=== PATIENT | male | born 1955 | race Caucasian/White ===

== ENCOUNTER 2018-06-27 16:51 | Inpatient (IN) | payer MEDICARE ==
[~2018-06-27] VITALS: Ht 182.9 cm; Wt 85.3 kg
[~2018-06-27 16:51] MED LIST: HYDR-548 PO
[2018-06-27] MEDS ORDERED: MAG HYDROX/AL HYDROX/SIMETH 30 ML UDC PO PRN (17:30)
[2018-06-27] MEDS ORDERED: MAGNESIUM HYDROXIDE 30 ML UDC PO PRN (17:30)
[2018-06-27] MEDS: LORAZEPAM 0.5 MG TABLET PO PRN (18:25)
--- NOTE | 2018-06-27 18:26 | NUR ---
RN-CO: Ativan 1 mg po given for c/o of anxiety.
[2018-06-27 19:30] VITALS: BP 136/87
--- NOTE | 2018-06-27 19:30 | NUR ---
GPS ADMISSION NOTE, RECEIVED PATIENT FROM E.. / [facility]. PATIENT ARRIVED ON THIS UNIT AT 1930 VIA STRETCHER WITH 2 EMT ESCORTS. PATIENT ADMITTED ON A 5150 HOLD FOR GD. PER HOLD PATIENT CALLED 911 COMPLAINING OF FOOT PAIN FOR 37 YEARS. THEN THE PATIENT SCREAMED HE IS BIPOLAR AND GOING TO KILL HIMSELF. PATIENT HAS HAS 4 HOSPITALIZATIONS IN THE LAST MONTH FOR HIS MENTAL DISORDER. PATIENT HAS MONEY BUT BECAUSE OF HIS MANIC BEHAVIOR HE CANNOT ACCESS IT. PATIENT CAN NOT GIVE VIABLE PLAN FOR SELF CARE AT THIS TIME. THE 5150 WAS REVIEWED AND THE DOCUMENTATION IN THE 5150 HOLD APPEARS TO REFLECT THE PRESENTATION OF THE PATIENT. UPON FACE TO FACE ASSESSMENT PATIENT IS CURRENTLY LYING IN BED AWAKE, HAS A COMPLAINT OF LOW BACK PAIN AT A 7 OUT 10 ON THE PAIN SCALE. PATIENT IS TAKING ORAL PAIN MEDICATION FOR THIS PAIN. PATIENT IS DISPLAYING NO S/S OF APPARENT DISTRESS. PATIENT BREATHING IS UNLABORED WITH EQUAL RISE AND FALL OF THE CHEST. PATIENT IS ALERT AND ORIENTATED X 3 ON ROOM AIR. PATIENT ASSISTED WITH TURING AND REPOSITIONING Q2HR AND PRN FOR COMFORT AND CIRCULATION. PATIENT HAS NO NEEDS AT THIS TIME. PATIENT IS NOTED TO BEING HYPERVERBAL, DISHEVELED, DISORGANIZED, ANXIOUS, COOPERATIVE, AND NEEDS REDIRECTION. PATIENT DENIES SUICIDE IDEATIONS AND HOMICIDAL IDEATIONS AT THIS TIME. PATIENT IS UNDER THE PSYCHIATRIC CARE OF DR. BYNUM AND THE MEDICAL CARE OF DR ISLAS. PATIENT BELONGINGS WERE INVENTORIED AND CHECKED FOR CONTRABAND. ALL CONTRABAND REMOVED AND STORED IN PATIENT HALLWAY LOCKER. PATIENT ADVANCED DIRECTIVES PREFERENCE, IMMUNIZATIONS QUESTIONER, NECESSARY PAPERWORK, AND SKIN ASSESSMENT COMPLETED. PATIENT ORIENTATED TO ROOM, FLOOR, AND STAFF WITH ALL QUESTIONS ANSWERED. PATIENT EDUCATED ON THE USE OF THE CALL MARK. PATIENT BED SIDE RAILS ARE UP X 2 FOR SAFETY. PATIENT BED IS LOCKED, LOW AND I WILL CONTINUE TO MONITOR THIS PATIENT Q 15 MIN WITH THE HELP OF STAFF TO MAINTAIN SAFETY.
[2018-06-27] MEDS ORDERED: LEVO88TA5 PO (20:02)
[2018-06-27] MEDS ORDERED: PREG75CA PO (20:02)
[2018-06-27] MEDS ORDERED: QUET200T PO (20:02)
[2018-06-27] MEDS ORDERED: CLON1TAB PO (20:03)
[2018-06-27] MEDS ORDERED: TRAZ-214 PO (20:04)
[2018-06-27] MEDS ORDERED: LITH150C PO (20:06)
[2018-06-27 20:11] VITALS: BP 147/84
[2018-06-27] MEDS ORDERED: HYDROCODONE/APAP 10/325MG 1 EA TABLET PO ONE (21:30)
--- NOTE | 2018-06-27 21:30 | NUR ---
GPS RN NOTE, PATIENT HAS A COMPLAINT OF LOWER BACK PAIN AT 8 OUT 10 ON THE PAIN SCALE AND IS REQUESTING NORCO AT THIS TIME. PAGED [facility] AND INFORMED DR GAL MARCIAL OF MY FINDING. DR GAL MARCIAL ORDERED NORCO 10-325 1 TAB PO ONCE AND SAID HE WILL THE MEDICATION RECONCILIATION. ALL ORDERS NOTED AND CARRIED OUT, WILL CONTINUE TO MONITOR THIS PATIENT.
--- NOTE | 2018-06-27 21:46 | NUR ---
GPS RN NOTE, PATIENT HAS A COMPLAINT OF LOWER BACK PAIN AT 8 OUT 10 ON THE PAIN SCALE AND IS REQUESTING NORCO AT THIS TIME. PATIENT VITAL SIGNS ARE STABLE GAVE NORCO 10-325 1 TAB PO ONCE. WILL REASSESS PAIN AND I WILL CONTINUE TO MONITOR THIS PATIENT.
[2018-06-27] MEDS: TEMAZEPAM 7.5 MG CAPSULE PO PRN (22:59)
--- NOTE | 2018-06-27 22:59 | NUR ---
GPS RN NOTE, PATIENT HAS A COMPLAINT OF NOT BEING ABLE TO SLEEP AND IS REQUESTING RESTORIL AT THIS TIME. PATIENT VITAL SIGNS ARE STABLE. GAVE RESTORIL 15MG PO HS ORDERED. WILL REASSESS PAIN AND I WILL CONTINUE TO MONITOR THIS PATIENT.
[2018-06-27] MEDS ORDERED: HYDROCODONE/APAP 10/325MG 1 EA TABLET PO PRN (23:00)
[2018-06-28] MEDS: LORAZEPAM 0.5 MG TABLET PO PRN ×4 (03:12→20:09)
--- NOTE | 2018-06-28 03:13 | NUR ---
GPS RN NOTE, PATIENT HAS A COMPLAINT OF FEELING ANXIOUS AND IS REQUESTING ATIVAN AT THIS TIME. PATIENT VITAL SIGNS ARE STABLE. GAVE ATIVAN 1 MG PO Q4 HR PRN ORDERED. WILL REASSESS FOR ANXIETY AND I WILL CONTINUE TO MONITOR THIS PATIENT.
[2018-06-28] MEDS: HYDROCODONE/APAP 10/325MG 1 EA TABLET PO PRN ×3 (04:17→17:45)
[2018-06-28 08:00] VITALS: BP 150/98
[2018-06-28 08:09] LABS: ALBUMIN 3.6 g/dL (3.4-5.0); BASOPHILS # (AUTO) 0.1 /CMM (0.0-0.2); BASOPHILS % (AUTO) 0.7 % (0.0-2.0); BILIRUBIN,TOTAL 0.4 mg/dL (0.2-1.0); CREATININE 0.9 mg/dL (0.6-1.3); EOSINOPHILS % (AUTO) 0.9 % (0.0-6.0); HEMATOCRIT 40 % (39-51); HEMOGLOBIN 13.1 g/dL (13.5-17.5); LYMPHOCYTES # (AUTO) 3.3 /CMM (0.8-4.8); LYMPHOCYTES % (AUTO) 38.4 % (20.0-44.0); MAGNESIUM 2.1 mg/dL (1.8-2.4); MEAN CORPUSCULAR HGB CONC 33 g/dl (31.0-36.0); MEAN CORPUSCULAR VOLUME 89 fL (80-96); MONOCYTES # (AUTO) 0.8 /CMM (0.1-1.30); MONOCYTES % (AUTO) 9.9 % (2.0-12.0); NEUTROPHILS # (AUTO) 4.3 /CMM (1.8-8.9); NEUTROPHILS % (AUTO) 50.1 % (43.0-81.0); PHOSPHORUS 3.3 mg/dL (2.5-4.9); PLATELET COUNT (AUTO) 348 /CMM (150-450); POTASSIUM 4.1 mmol/L (3.5-5.1); RDW COEFFICIENT OF VARIATION 13.4 (11.5-15.0); RED BLOOD CELL COUNT(AUTO) 4.43 MIL/uL (4.5-6.0); TOTAL PROTEIN, SERUM 7.2 g/dL (6.4-8.2); WHITE BLOOD COUNT (AUTO) 8.6 K/uL (4.3-11.0)
[2018-06-28] MEDS: LEVOTHYROXINE SODIUM 88 MCG TABLET PO SCH (08:17)
[2018-06-28] MEDS: NICOTINE PATCH (21MG) 21 MG PATCH.TD24 TD SCH (08:17)
--- NOTE | 2018-06-28 08:17 | NUR ---
GPS RN NOTE: PT REQUESTING ANXIETY MEDICATION ATIVAN 1 MG PO PRN Q4 HR GIVEN PER ORDER.
[2018-06-28] MEDS: PREGABALIN 25 MG CAPSULE PO SCH (08:54)
--- NOTE | 2018-06-28 10:59 | NUR ---
GPS RN NOTE: PT COMPLAINING OF GENERALIZED BODY PAIN NORCO PO PRN GIVEN WILL CONTINUE MONITORING FOR SAFETY AND BEHAVIOR Q 15 MIN
--- NOTE | 2018-06-28 12:44 | NUR ---
GPS RN NOTE: PT REQUESTING ANXIETY MEDICATION ATIVAN 1 MG PO PRN Q4 HR GIVEN PER ORDER.
[2018-06-28 16:00] VITALS: BP_SYST 148; BP_SYST 165; BP_DIAS 78; BP_DIAS 87
[2018-06-28] MEDS: VALPROIC ACID 250 MG/5 ML UDC PO SCH (16:07)
[2018-06-28 19:40] VITALS: BP 144/79
[2018-06-28] MEDS: clonazePAM 1 MG TABLET PO SCH (21:30)
[2018-06-28] MEDS: TRAZODONE 50 MG TABLET PO SCH (21:30)
[2018-06-28] MEDS: TEMAZEPAM 7.5 MG CAPSULE PO PRN (21:30)
[2018-06-28] MEDS: QUETIAPINE FUMARATE 100 MG TABLET PO SCH (21:30)
[2018-06-29] MEDS: HYDROCODONE/APAP 10/325MG 1 EA TABLET PO PRN ×3 (05:15→19:50)
[2018-06-29 08:00] VITALS: BP 138/80
[2018-06-29] MEDS: LEVOTHYROXINE SODIUM 88 MCG TABLET PO SCH (08:23)
[2018-06-29] MEDS: VALPROIC ACID 250 MG/5 ML UDC PO SCH ×3 (08:23→16:24)
[2018-06-29] MEDS: NICOTINE PATCH (21MG) 21 MG PATCH.TD24 TD SCH (08:23)
[2018-06-29] MEDS: PREGABALIN 25 MG CAPSULE PO SCH (08:24)
[2018-06-29] MEDS: LORAZEPAM 0.5 MG TABLET PO PRN ×2 (08:41→14:51)
--- NOTE | 2018-06-29 08:45 | NUR ---
GPS/RN-NOTES NOTED PATIENT WITH HYPERVERBAL WITH LOUD VOICE,PACING IN THE HALLWAY,DEMANDING,EASILY ANGRY BEHAVIOR.PATIENT REQUESTING FOR ATIVAN. ATIVAN 1MG P.O GIVEN PRN ORDER. WILL CONT. MONITORING FOR SAFETY AND BEHAVIOR
--- NOTE | 2018-06-29 09:10 | NUR ---
INITIAL DISCHARGE PLAN: Patient wishes to return home to [address] [place] [address] [address] [facility] [address] . JOCY attempted to contact pts partner Regan [phone] to confirm pt is able to return home. SW was unable to speak with him and left a voicemail for callback. JOCY will help form a safe and proper discharge in collaboration with .
--- NOTE | 2018-06-29 09:45 | NUR ---
GPS/RN-NOTES PATIENT PARTICIPATING IN THE ACTIVITY GROUP,CALM NO ACUTE DISTRESS NOTED.
--- NOTE | 2018-06-29 11:53 | NUR ---
GPS/RN-NOTES Patient requesting Somis for 9/10 both legs pain. Somis 10/325mg 1 tab. p.o given as prn order. Will cont. monitoring for safety.
--- NOTE | 2018-06-29 13:09 | NUR ---
SW received a phone call from pts partner Regan [phone], who stated he does not live with pt and is not pts partner. Regan stated he is pts long time friend. According to Regan pt is able to care for self and return home.
--- NOTE | 2018-06-29 14:52 | NUR ---
RN-CO: ATIVAN 1 MG PO GIVEN FOR RESTLESSNESS.
--- NOTE | 2018-06-29 15:55 | NUR ---
GPS/RN-NOTES PATIENT WATCHING TV IN THE DAY ROOM,CALM NO ACUTE DISTRESS NOTED.
[2018-06-29 16:00] VITALS: BP 136/80
[2018-06-29 20:00] VITALS: BP 143/73
[2018-06-29] MEDS: TRAZODONE 50 MG TABLET PO SCH (21:44)
[2018-06-29] MEDS: clonazePAM 1 MG TABLET PO SCH (21:44)
[2018-06-29] MEDS: QUETIAPINE FUMARATE 100 MG TABLET PO SCH (21:44)
[2018-06-29] MEDS: TEMAZEPAM 7.5 MG CAPSULE PO PRN (21:44)
[2018-06-29] MEDS: ACETAMINOPHEN 325 MG TABLET PO PRN (23:50)
[2018-06-30] MEDS: LORAZEPAM 0.5 MG TABLET PO PRN ×2 (04:17→17:07)
[2018-06-30] MEDS: HYDROCODONE/APAP 10/325MG 1 EA TABLET PO PRN ×2 (06:12→13:17)
[2018-06-30 08:00] VITALS: BP 126/73
[2018-06-30] MEDS: VALPROIC ACID 250 MG/5 ML UDC PO SCH ×3 (08:38→17:30)
[2018-06-30] MEDS: PREGABALIN 25 MG CAPSULE PO SCH (08:39)
[2018-06-30] MEDS: LEVOTHYROXINE SODIUM 88 MCG TABLET PO SCH (08:39)
[2018-06-30] MEDS: NICOTINE PATCH (21MG) 21 MG PATCH.TD24 TD SCH (08:39)
[2018-06-30 10:30] LABS: APPEARANCE,URINE CLEAR (CLEAR); BILIRUBIN,URINE NEGATIVE (NEGATIVE); BLOOD, URINE NEGATIVE Ery/uL (NEGATIVE); COLOR,URINE YELLOW (YELLOW); KETONES,URINE NEGATIVE (NEGATIVE); LEUKOCYTE ESTERASE ,URINE NEGATIVE (NEGATIVE); NITRITE, URINE NEGATIVE (NEGATIVE); PROTEIN,URINE NEGATIVE (NEGATIVE); UGLUCOSE NEGATIVE (NEGATIVE); UROBILINOGEN,URINE 0.2 EU/dL (0.2)
[2018-06-30 16:00] VITALS: BP 135/76
--- NOTE | 2018-06-30 17:14 | NUR ---
GPS/RN-NOTES AT 1513 PATIENT WAS FOUND LAYING ON HIS BACK ON THE FLOOR.UPON ASSESSMENT PATIENT CLAIM HE TRIP ON HIS SOCKS AND SLOWLY PUT HIMSELF ON THE FLOOR WITH HIS HANDS SUPPORT. PATIENT WAS ASSISTED BY TWO STAFF UP THE CHAIR WITHOUT ANY COMPLAIN OF PAIN OR ANY DISCOMFORT. PATIENT ABLE TO WALK INTO HIS ROOM UN ASSISTED WITH STEADY GAIT.HEAD TO TOE ASSESSMENT DONE NO INJURY OR SKIN INJURY NOTED. VITAL SIGNS BP 135/76,P 91,TEMP.97.7 O2 97%..PATIENT STATED" I'M OK I'M FINE NO BIG DEAL EVERYTHING IS FINE I JUST LAY ON THE FLOOR. ANOTHER PATIENT WITNESS AND STATED" HE INTENTIONALLY PUT HIMSELF ON THE FLOOR". DR. BYNUM( PSYCHIATRIST),ANUP ISLAS( INTERN BRAND),LELAND( SUPERVISOR MAILS),AND TOYA OSBORNE (FAMILY) MADE AWARE.
--- NOTE | 2018-06-30 17:17 | NUR ---
GPS/RN-NOTES .PATIENT REQUESTING FOR ATIVAN STATED" I NEED MY ATIVAN FOR MY ANXIETY". ATIVAN 1MG P.O GIVEN PRN ORDER. WILL CONT. MONITORING FOR SAFETY AND BEHAVIOR
--- NOTE | 2018-06-30 18:43 | NUR ---
GPS/RN-NOTES PATIENT WATCHING TV IN THE DAY ROOM,CALM NO ACUTE DISTRESS NOTED.
[2018-06-30 20:00] VITALS: BP 113/53
[2018-06-30] MEDS: TRAZODONE 50 MG TABLET PO SCH (21:40)
[2018-06-30] MEDS: QUETIAPINE FUMARATE 100 MG TABLET PO SCH (21:40)
[2018-06-30] MEDS: clonazePAM 1 MG TABLET PO SCH (21:40)
[2018-06-30] MEDS: TEMAZEPAM 7.5 MG CAPSULE PO PRN (21:41)
[2018-07-01] MEDS: HYDROCODONE/APAP 10/325MG 1 EA TABLET PO PRN ×3 (03:48→19:57)
[2018-07-01] MEDS: LORAZEPAM 0.5 MG TABLET PO PRN ×3 (05:41→23:18)
[2018-07-01 08:00] VITALS: BP 130/67
[2018-07-01] MEDS: LEVOTHYROXINE SODIUM 88 MCG TABLET PO SCH (08:18)
[2018-07-01] MEDS: PREGABALIN 25 MG CAPSULE PO SCH (08:18)
[2018-07-01] MEDS: VALPROIC ACID 250 MG/5 ML UDC PO SCH ×3 (08:19→16:21)
[2018-07-01] MEDS: NICOTINE PATCH (21MG) 21 MG PATCH.TD24 TD SCH (08:19)
--- NOTE | 2018-07-01 09:54 | NUR ---
GPS/RN-NOTES PATIENT STATED" I NEED MY NORCO FOR BY PAIN ON MY LEGS". NORCO 10/325MG 1 TAB P.O GIVEN PRN ORDER.
--- NOTE | 2018-07-01 10:15 | NUR ---
GPS/RN-NOTES PATIENT IN THE DAY ROOM INTERACTING WITH COPEERS. NO ACUTE DISTRESS NOTED.
--- NOTE | 2018-07-01 15:40 | NUR ---
GPS/RN-NOTES PATIENT REQUESTING FOR ATIVAN STATED" I NEED MY ATIVAN NOW I'M ANXIOUS". ATIVAN 1MG P.O GIVEN PRN ORDER. WILL CONT. MONITORING FOR SAFETY AND BEHAVIOR
[2018-07-01 16:00] VITALS: BP 150/87
--- NOTE | 2018-07-01 16:43 | NUR ---
GPS/RN-NOTES PATIENT AMBULATING IN THE HALLWAY AND IN THE DAY ROOM WITH STEADY GAIT. NOTED PATIENT WITH DEMANDING AND NEEDY BEHAVIOR. UNABLE TO SIT STILL PATIENT ALSO FOCUSING ON HIS DENT AND GETTING SNACKS. ALL NEEDS ATTENDED AND ANTICIPATED. WILL CONT. MONITORING Q15 MINS. FOR SAFETY AND BEHAVIOR.
[2018-07-01 20:00] VITALS: BP 146/76
[2018-07-01] MEDS: TRAZODONE 50 MG TABLET PO SCH (22:05)
[2018-07-01] MEDS: clonazePAM 1 MG TABLET PO SCH (22:05)
[2018-07-01] MEDS: diphenhydrAMINE HCL 25 MG CAPSULE PO PRN (22:06)
[2018-07-01] MEDS: QUETIAPINE FUMARATE 100 MG TABLET PO SCH (22:06)
[2018-07-01] MEDS: TEMAZEPAM 7.5 MG CAPSULE PO PRN (22:06)
--- NOTE | 2018-07-01 22:15 | NUR ---
PT COMPLAINING OF REDNESS, ITCHING ON HIS FACE. PAGED WILMER SANCHEZ (ANUP) FOR ORDER. SHE ORDERED BENADRYL 25MG PO Q8HRS PRN. HYDROCORTISONE CREAM Q12HRS SCHEDULED. NOTED AND CARRIED OUT.
[2018-07-02] MEDS: HYDROCODONE/APAP 10/325MG 1 EA TABLET PO PRN ×3 (05:59→19:37)
[2018-07-02 08:00] VITALS: BP 150/76
[2018-07-02] MEDS: LORAZEPAM 0.5 MG TABLET PO PRN ×3 (08:21→16:40)
[2018-07-02] MEDS: VALPROIC ACID 250 MG/5 ML UDC PO SCH ×3 (08:21→16:40)
[2018-07-02] MEDS: PREGABALIN 25 MG CAPSULE PO SCH (08:22)
[2018-07-02] MEDS: NICOTINE PATCH (21MG) 21 MG PATCH.TD24 TD SCH (08:22)
[2018-07-02] MEDS: LEVOTHYROXINE SODIUM 88 MCG TABLET PO SCH (08:22)
[2018-07-02] MEDS: HYDROCORTISONE 0.5% CREAM 28.35 GM TUBE TP SCH ×2 (08:29→21:08)
[2018-07-02] MEDS: ACETAMINOPHEN 325 MG TABLET PO PRN (08:33)
[2018-07-02] MEDS: diphenhydrAMINE HCL 25 MG CAPSULE PO PRN (08:33)
[2018-07-02 16:00] VITALS: BP 153/86
[2018-07-02 20:12] VITALS: BP 151/73
[2018-07-02] MEDS: TRAZODONE 50 MG TABLET PO SCH (21:08)
[2018-07-02] MEDS: QUETIAPINE FUMARATE 100 MG TABLET PO SCH (21:08)
[2018-07-02] MEDS: clonazePAM 1 MG TABLET PO SCH (21:08)
[2018-07-03 08:00] VITALS: BP 128/80
[2018-07-03] MEDS: PREGABALIN 25 MG CAPSULE PO SCH (08:36)
[2018-07-03] MEDS: LORAZEPAM 0.5 MG TABLET PO PRN (08:36)
[2018-07-03] MEDS: VALPROIC ACID 250 MG/5 ML UDC PO SCH ×3 (08:36→16:43)
[2018-07-03] MEDS: NICOTINE PATCH (21MG) 21 MG PATCH.TD24 TD SCH (08:37)
[2018-07-03] MEDS: LEVOTHYROXINE SODIUM 88 MCG TABLET PO SCH (08:37)
[2018-07-03] MEDS: HYDROCODONE/APAP 10/325MG 1 EA TABLET PO PRN ×3 (08:37→20:42)
[2018-07-03] MEDS: HYDROCORTISONE 0.5% CREAM 28.35 GM TUBE TP SCH ×2 (09:13→21:51)
[2018-07-03] MEDS: diphenhydrAMINE HCL 25 MG CAPSULE PO PRN (10:20)
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
--- NOTE | 2018-07-03 13:56 | NUR ---
gps sales applications engineer: notes ativan 2mg im and haldol 5mg im given to right buttock and then followed by benadryl 25mg im to right gluteal x 1 as ordered. will continue to monitor.
[2018-07-03] MEDS ORDERED: HALOPERIDOL LACTATE INJ 5 MG/ML VIAL IM ONE (14:00)
[2018-07-03] MEDS ORDERED: diphenhydrAMINE HCL 50 MG/ML VIAL IM ONE (14:00)
[2018-07-03] MEDS ORDERED: HALOPERIDOL DECANOATE IM 100 MG/ML AMPUL IM ONE (14:00)
[2018-07-03] MEDS ORDERED: LORAZEPAM INJ 2 MG/ML VIAL IM ONE (14:00)
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
[2018-07-03 16:00] VITALS: BP 161/85
--- NOTE | 2018-07-03 16:11 | NUR ---
SW contacted [facility] Address: [address], [place] [address] to stop delivery of levi. Due to pts current manic state, poor judgement, and pts financial well-being, flower orders have been stopped. Pt has been ordering large amounts of levi on a daily basis. Pt has spend over $500 on flower arrangements since admitted to the hospital.
--- NOTE | 2018-07-03 19:30 | NUR ---
RN NOTES SEEN AMBULATING TOWARDS HIS ROOM, STEADY GAIT. COOPERATIVE, MULTI NEEDS ATTENDED. APPEARS TO UNDERSTAND PLAN OF CARE AND MEDICATION REGIMEN. TO CONTINUE
[2018-07-03 20:39] VITALS: BP_SYST 143; BP_SYST 145; BP_DIAS 59; BP_DIAS 65
[2018-07-03] MEDS: TRAZODONE 50 MG TABLET PO SCH (21:25)
[2018-07-03] MEDS: clonazePAM 1 MG TABLET PO SCH (21:25)
[2018-07-03] MEDS: QUETIAPINE FUMARATE 100 MG TABLET PO SCH (21:25)
--- NOTE | 2018-07-03 23:40 | NUR ---
RN NOTES SLEEPING OF THIS TIME, SUSY WATCHED
--- NOTE | 2018-07-03 23:42 | NUR ---
RN NOTES ATTENTION SEEKING, ALL NEEDS ATTENDED.. RELIEF FROM NORCO ADMINISTERED FOR HIS BILATERAL FEET AND HANDS PAIN VERBALIZED. STATED HAS CHRONIC PAIN. KEPT COMFORTABLE.
[2018-07-04] MEDS: HYDROCODONE/APAP 10/325MG 1 EA TABLET PO PRN ×3 (03:01→17:58)
--- NOTE | 2018-07-04 03:01 | NUR ---
GPS RN NOTE, PATIENT HAS A COMPLAINT OF LOWER BACK AND BILATERAL FOOT PAIN AT 6 OUT 10 ON THE PAIN SCALE AND IS REQUESTING NORCO AT THIS TIME. PATIENT VITAL SIGNS ARE STABLE. GAVE NORCO 10-325 1 TAB PO Q6HR PRN ORDERED. WILL REASSESS PAIN AND I WILL CONTINUE TO MONITOR THIS PATIENT.
[2018-07-04] MEDS: LORAZEPAM 0.5 MG TABLET PO PRN ×2 (06:24→12:38)
--- NOTE | 2018-07-04 06:48 | NUR ---
RN NOTES, WOKE UP EARLY TODAY, AMBULATING AROUND HALLWAYS. ALL NEEDS ATTENDED. BEGINNING TO GET AGITATED, ATIVAN 1MG PO ADMINISTERED. PREFERS TO SEE ON A CHAIR THIS TIME.
[2018-07-04 08:00] VITALS: BP 125/65
[2018-07-04] MEDS: NICOTINE PATCH (21MG) 21 MG PATCH.TD24 TD SCH (09:00)
[2018-07-04] MEDS: PREGABALIN 25 MG CAPSULE PO SCH (09:00)
[2018-07-04] MEDS: LEVOTHYROXINE SODIUM 88 MCG TABLET PO SCH (09:01)
[2018-07-04] MEDS: QUETIAPINE FUMARATE 100 MG TABLET PO SCH ×2 (09:01→21:21)
[2018-07-04] MEDS: VALPROIC ACID 250 MG/5 ML UDC PO SCH ×3 (09:01→16:14)
[2018-07-04] MEDS: clonazePAM 0.5 MG TABLET PO SCH (09:01)
[2018-07-04] MEDS: HYDROCORTISONE 0.5% CREAM 28.35 GM TUBE TP SCH ×2 (09:05→21:13)
--- NOTE | 2018-07-04 10:28 | NUR ---
[id number]: GAVE NORCO 10-325 MG PO DUE TO GENERALIZED PAIN 05/19 UPON PT REQUEST AND WILL CONTINUE TO MONITOR FOR EFFECTIVENESS OF MEDICATION.
--- NOTE | 2018-07-04 12:38 | NUR ---
[id number]: GAVE ATIVAN 1 MG PO DUE TO INCREASED ANXIETY UPON PT REQUEST AND WILL CONTINUE TO MONITOR FOR EFFECTIVENESS OF MEDICATION
[2018-07-04 16:00] VITALS: BP 127/80
--- NOTE | 2018-07-04 17:55 | NUR ---
[id number]: GAVE NORCO 10-325 MG PO DUE TO GENERALIZED PAIN 05/19 UPON PT REQUEST AND WILL CONTINUE TO MONITOR FOR EFFECTIVENESS OF MEDICATION.
--- NOTE | 2018-07-04 19:16 | NUR ---
RN NOTES Patient seen ambulating in the hallway, going back to his room. Nephew at bedside. Requesting for food. Needs attended
[2018-07-04 20:13] VITALS: BP 148/94
[2018-07-04] MEDS: clonazePAM 1 MG TABLET PO SCH (21:14)
[2018-07-04] MEDS: TRAZODONE 50 MG TABLET PO SCH (21:21)
--- NOTE | 2018-07-04 21:25 | NUR ---
RN NOTES Patient needy and demanding. Needs attended to. Medications given as ordered.
[2018-07-05] MEDS: LORAZEPAM 0.5 MG TABLET PO PRN ×3 (01:08→18:43)
--- NOTE | 2018-07-05 01:08 | NUR ---
RN NOTES Patient woke up stating he urinated on the bed. Starting to get agitated. Needs attended to. Ativan 1mg given as ordered
[2018-07-05] MEDS: HYDROCODONE/APAP 10/325MG 1 EA TABLET PO PRN ×4 (02:41→22:25)
--- NOTE | 2018-07-05 02:41 | NUR ---
RN NOTES PATIENT COMPLAINING OF PAIN ON BOTH FEET, 06/19. NORCO 10-325 MG GIVEN ORDERED. WILL CONTINUE TO MONITOR FOR EFFECTIVENESS OF MEDICATION.
[2018-07-05 08:00] VITALS: BP 142/70
[2018-07-05] MEDS: NICOTINE PATCH (21MG) 21 MG PATCH.TD24 TD SCH (08:54)
[2018-07-05] MEDS: PREGABALIN 25 MG CAPSULE PO SCH (08:55)
[2018-07-05] MEDS: clonazePAM 0.5 MG TABLET PO SCH (08:55)
[2018-07-05] MEDS: VALPROIC ACID 250 MG/5 ML UDC PO SCH ×3 (08:55→17:12)
[2018-07-05] MEDS: QUETIAPINE FUMARATE 100 MG TABLET PO SCH ×2 (08:55→22:26)
[2018-07-05] MEDS: LEVOTHYROXINE SODIUM 88 MCG TABLET PO SCH (08:56)
[2018-07-05] MEDS: HYDROCORTISONE 0.5% CREAM 28.35 GM TUBE TP SCH ×2 (08:56→21:42)
[2018-07-05 16:48] VITALS: BP 139/81
--- NOTE | 2018-07-05 16:51 | NUR ---
JOCY spoke with pts nephew and next of kin Ermelinda [phone] regarding pt current manic state and pt wanting to give money to friend Regan and also release his personal belongings (car keys) to him. Pts nephew stated he had a conversation with pt regarding SW and hospital staff being concerned about his best interest and thus not allowing pt to continue purchasing levi and also giving Regan money. Pts nephew stated he appreciates that pt is being restricted from giving Regan money and also giving him his car keys. Pts nephew stated he would be coming on 07/06/18 to get car keys from pt since pt wants his nephew to have them. Addendum: 07/06/18 at 1512 by KINJAL SANDRA pts nephew and next of kin TOYA [phone]
--- NOTE | 2018-07-05 19:30 | NUR ---
RECEIVED PATIENT IN DINING ROOM; INTERACTING WITH OTHER PATIENTS. AO X 3, ABLE TO MAKE NEEDS KNOWN. NO ACUTE DISTRESS NOTED. DENIES ANY PAIN AT THIS TIME. AMBULATORY WITH STEADY GAIT. SAFETY REMINDERS GIVEN. PATIENT'S ROOM HAS LOW BED WITH BILATERAL UPPER SIDE RAILS UP. CALL MARK WITHIN EASY REACH FROM BED. WILL CONTINUE TO MONITOR.
[2018-07-05 19:54] VITALS: BP 139/77
[2018-07-05 20:00] VITALS: BP 139/77
[2018-07-05] MEDS: clonazePAM 1 MG TABLET PO SCH (21:37)
[2018-07-05] MEDS: TRAZODONE 50 MG TABLET PO SCH (22:26)
[2018-07-06] MEDS: LORAZEPAM 0.5 MG TABLET PO PRN ×3 (04:15→17:53)
--- NOTE | 2018-07-06 04:15 | NUR ---
GPS RN NOTE, PATIENT HAS A COMPLAINT OF FEELING ANXIOUS AND IS REQUESTING ATIVAN AT THIS TIME. PATIENT VITAL SIGNS ARE STABLE. GAVE ATIVAN 1MG PO Q4HR PRN ORDERED. WILL REASSESS FOR ANXIETY AND I WILL CONTINUE TO MONITOR THIS PATIENT.
[2018-07-06] MEDS: HYDROCODONE/APAP 10/325MG 1 EA TABLET PO PRN ×2 (06:15→15:29)
--- NOTE | 2018-07-06 06:42 | NUR ---
PATIENT AWAKE; AMBULATING IN ROOM AND HALLWAY; CURRENTLY EATING A SNACK. RESPIRATIONS EVEN. BILATERAL FEET PAIN HAS SUBSIDED AFTER NORCO 10/325 ADMINISTRATION PER PATIENT. DUE MEDS GIVEN WITH NO ASE NOTED. NEEDS ATTENDED. SAFETY PRECAUTIONS AND COMFORT MEASURES IN PLACE. WILL GIVE REPORT TO DAY SHIFT FOR CONTINUITY OF CARE.
[2018-07-06 08:00] VITALS: BP 128/69
[2018-07-06] MEDS: LEVOTHYROXINE SODIUM 88 MCG TABLET PO SCH (08:23)
[2018-07-06] MEDS: QUETIAPINE FUMARATE 100 MG TABLET PO SCH ×2 (08:23→21:53)
[2018-07-06] MEDS: clonazePAM 0.5 MG TABLET PO SCH (08:23)
[2018-07-06] MEDS: VALPROIC ACID 250 MG/5 ML UDC PO SCH ×3 (08:24→16:12)
[2018-07-06] MEDS: PREGABALIN 25 MG CAPSULE PO SCH (08:24)
[2018-07-06] MEDS: NICOTINE PATCH (21MG) 21 MG PATCH.TD24 TD SCH (08:24)
[2018-07-06] MEDS: HYDROCORTISONE 0.5% CREAM 28.35 GM TUBE TP SCH ×2 (09:52→21:46)
--- NOTE | 2018-07-06 15:13 | NUR ---
JOCY contacted [facility] Address: [address] [place] [address] to stop delivery of levi. Due to pts current manic state, poor judgement, and pts financial well-being, flower orders have been stopped. Pt has been ordering large amounts of levi on a daily basis. Pt has spend over $500 on flower arrangements since admitted to the hospital.
[2018-07-06 16:25] VITALS: BP 145/88
[2018-07-06] MEDS: TRAZODONE 50 MG TABLET PO SCH (21:53)
[2018-07-06] MEDS: clonazePAM 1 MG TABLET PO SCH (21:53)
[2018-07-06] MEDS: TEMAZEPAM 7.5 MG CAPSULE PO PRN (21:54)
[2018-07-07] MEDS: HYDROCODONE/APAP 10/325MG 1 EA TABLET PO PRN ×3 (02:56→18:54)
[2018-07-07] MEDS: LORAZEPAM 0.5 MG TABLET PO PRN ×2 (05:13→13:31)
[2018-07-07 08:06] VITALS: BP 149/77
[2018-07-07] MEDS: VALPROIC ACID 250 MG/5 ML UDC PO SCH ×3 (08:21→17:08)
[2018-07-07] MEDS: LEVOTHYROXINE SODIUM 88 MCG TABLET PO SCH (08:22)
[2018-07-07] MEDS: PREGABALIN 25 MG CAPSULE PO SCH (08:22)
[2018-07-07] MEDS: clonazePAM 0.5 MG TABLET PO SCH (08:23)
[2018-07-07] MEDS: NICOTINE PATCH (21MG) 21 MG PATCH.TD24 TD SCH (08:23)
[2018-07-07] MEDS: QUETIAPINE FUMARATE 100 MG TABLET PO SCH ×2 (09:46→23:05)
[2018-07-07] MEDS: HYDROCORTISONE 0.5% CREAM 28.35 GM TUBE TP SCH ×2 (09:48→21:37)
--- NOTE | 2018-07-07 15:24 | NUR ---
JOCY contacted pts nephew and next of kin Vin [phone] to inform him pt is requesting credit card to purchase an airline ticket to [place]. JOCY informed pts nephew via voicemail that pt has stated that he has a reservation to fly to [place] on Tuesday. JOCY requested a call back to confirm. JOCY also contacted MD and left voicemail for call back to notify of pts discharge plan.
--- NOTE | 2018-07-07 15:35 | NUR ---
JOCY spoke with regarding pts discharge plan to [place] and pt purchasing an airline ticket for Tuesday. stated pt will be discharged before Tuesday and it was okay for pt to travel alone to [place].
[2018-07-07 15:55] VITALS: BP 150/76
[2018-07-07] MEDS ORDERED: clonazePAM 0.5 MG TABLET PO PRN (18:30)
[2018-07-07 20:00] VITALS: BP 151/74
[2018-07-07] MEDS: diphenhydrAMINE HCL 25 MG CAPSULE PO PRN (21:21)
[2018-07-07] MEDS: clonazePAM 1 MG TABLET PO SCH (21:22)
[2018-07-07] MEDS: TRAZODONE 50 MG TABLET PO SCH (23:05)
[2018-07-08] MEDS: HYDROCODONE/APAP 10/325MG 1 EA TABLET PO PRN ×3 (03:42→17:52)
[2018-07-08 08:00] VITALS: BP 152/79
[2018-07-08] MEDS: QUETIAPINE FUMARATE 100 MG TABLET PO SCH ×2 (08:16→22:04)
[2018-07-08] MEDS: LEVOTHYROXINE SODIUM 88 MCG TABLET PO SCH (08:16)
[2018-07-08] MEDS: PREGABALIN 25 MG CAPSULE PO SCH (08:16)
[2018-07-08] MEDS: clonazePAM 0.5 MG TABLET PO SCH ×2 (08:16→12:52)
[2018-07-08] MEDS: HYDROCORTISONE 0.5% CREAM 28.35 GM TUBE TP SCH ×2 (08:16→20:40)
[2018-07-08] MEDS: NICOTINE PATCH (21MG) 21 MG PATCH.TD24 TD SCH (08:16)
[2018-07-08] MEDS: VALPROIC ACID 250 MG/5 ML UDC PO SCH ×3 (08:16→17:05)
[2018-07-08 15:59] VITALS: BP 152/81
[2018-07-08] MEDS: diphenhydrAMINE HCL 25 MG CAPSULE PO PRN (16:55)
[2018-07-08] MEDS ORDERED: CARBAMIDE PEROXIDE OTIC 15 ML BOTTLE EACH EAR ONE (17:00)
[2018-07-08 20:00] VITALS: BP 150/86
[2018-07-08] MEDS: clonazePAM 1 MG TABLET PO SCH (20:54)
[2018-07-08] MEDS: TRAZODONE 50 MG TABLET PO SCH (20:54)
[2018-07-09] MEDS: HYDROCODONE/APAP 10/325MG 1 EA TABLET PO PRN ×3 (04:01→21:07)
[2018-07-09 08:00] VITALS: BP 131/60
[2018-07-09] MEDS: PREGABALIN 25 MG CAPSULE PO SCH (09:10)
[2018-07-09] MEDS: VALPROIC ACID 250 MG/5 ML UDC PO SCH ×3 (09:10→16:44)
[2018-07-09] MEDS: NICOTINE PATCH (21MG) 21 MG PATCH.TD24 TD SCH (09:10)
[2018-07-09] MEDS: clonazePAM 0.5 MG TABLET PO SCH ×2 (09:11→12:00)
[2018-07-09] MEDS: LEVOTHYROXINE SODIUM 88 MCG TABLET PO SCH (09:11)
[2018-07-09] MEDS: HYDROCORTISONE 0.5% CREAM 28.35 GM TUBE TP SCH ×2 (09:11→21:10)
[2018-07-09] MEDS: QUETIAPINE FUMARATE 100 MG TABLET PO SCH ×2 (09:11→21:49)
[2018-07-09 16:00] VITALS: BP 130/82
[2018-07-09] MEDS: diphenhydrAMINE HCL 25 MG CAPSULE PO PRN (16:13)
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
[2018-07-09] MEDS ORDERED: diphenhydrAMINE HCL 50 MG/ML VIAL IM ONE (18:30)
[2018-07-09] MEDS ORDERED: OLANZAPINE 10 MG VIAL IM ONE (18:30)
--- NOTE | 2018-07-09 18:30 | NUR ---
GPS/RN ZYPREXA 10MG IM AND BENADRYL 50MG ADMINISTERED PER DR BRITO ORDER FOR PT BEING AGGRESSIVE, THROWING FOOD TRAY AT PHILIP ATHLETIC MONITOR AND PUSHING LOTUS ATHLETIC MONITOR. PT WAS NOT REDIRECTABLE.
--- NOTE | 2018-07-09 18:33 | NUR ---
[id number]: NOTIFIED DR. BRITO ABOUT PT'S BEHAVIOR AND DR. BRITO ORDERED BENADRYL 50 MG IM AND ZYPREXA 10 MG IM. WILL CONTINBUE TO MONITOR FOR [id number] OF MEDICATION
--- NOTE | 2018-07-09 19:30 | NUR ---
GPS RN NOTE: PATIENT SITTING UP IN BED. BREATHING EVEN AND UNLABORED, NO SOB NOTED. PATIENT ANXIOUS AND NEEDY, LOOKING FOR MULTIPLE SNACKS. PATIENT ALSO REQUESTING FOR NORCO, INFORMED PATIENT THAT MEDICATIONS IS NOT AVAILABLE TILL AT LEAST 8:45PM SINCE MEDICATION IS NEEDED EVERY 6 HOURS. WILL CONTINUE TO MONITOR.
[2018-07-09 19:58] VITALS: BP 135/73
--- NOTE | 2018-07-09 21:15 | NUR ---
GPS RN NOTE: PATIENT COMPLAINS OF PAIN TO BOTH FEET 8/10, NORCO 10/325MG 1 TAB ORAL GIVEN PER MD ORDER. WILL CONTINUE TO MONITOR.
[2018-07-09] MEDS: clonazePAM 1 MG TABLET PO SCH (21:49)
[2018-07-09] MEDS: TRAZODONE 50 MG TABLET PO SCH (21:50)
[2018-07-10] MEDS: HYDROCODONE/APAP 10/325MG 1 EA TABLET PO PRN ×3 (03:11→15:07)
--- NOTE | 2018-07-10 03:25 | NUR ---
GPS RN NOTE: PATIENT COMPLAINS OF PAIN TO BOTH FEET 8/10, NORCO 10/325MG 1 TAB ORAL GIVEN PER MD ORDER. WILL CONTINUE TO MONITOR.
--- NOTE | 2018-07-10 06:10 | NUR ---
GPS RN NOTE: PATIENT WANDERING HALLWAYS, REQUESTING FOR SNACKS. BREATHING EVEN AND UNLABORED, NO SOB NOTED. PATIENT CONTINUES TO BE NEEDY, BUT ABLE TO SET LIMITS. PATIENT SLEPT AT LEAST 3 HOURS. WILL ENDORSE TO DAY NURSE TO CONTINUE WITH PLAN OF CARE.
[2018-07-10 08:00] VITALS: BP 131/75
[2018-07-10] MEDS: clonazePAM 0.5 MG TABLET PO SCH ×2 (08:50→12:36)
[2018-07-10] MEDS: LEVOTHYROXINE SODIUM 88 MCG TABLET PO SCH (08:50)
[2018-07-10] MEDS: VALPROIC ACID 250 MG/5 ML UDC PO SCH ×3 (08:50→17:33)
[2018-07-10] MEDS: PREGABALIN 25 MG CAPSULE PO SCH (08:51)
[2018-07-10] MEDS: QUETIAPINE FUMARATE 100 MG TABLET PO SCH (08:51)
[2018-07-10] MEDS: NICOTINE PATCH (21MG) 21 MG PATCH.TD24 TD SCH (08:55)
[2018-07-10] MEDS: HYDROCORTISONE 0.5% CREAM 28.35 GM TUBE TP SCH ×2 (09:00→21:13)
--- NOTE | 2018-07-10 09:32 | NUR ---
GPS/RN PATIENT REPORTS 8/10 GENERALIZED PAIN, ADMINISTERED NORCO 10/325 1 TAB PER PATIENT REQUEST, WILL CONTINUE TO MONITOR.
--- NOTE | 2018-07-10 09:45 | NUR ---
Pt and pts nephew stated pt has an appointment with [facility] this week. JOCY contacted [facility] Address: [address] [place] [address] and spoke with Latrice to confirm pt has an appointment schedule for assessment. Per Latrice, pt is not in their system. JOCY will re refer pt once discharged.
--- NOTE | 2018-07-10 15:07 | NUR ---
GPS/RN PATIENT REPORTS 8/10 GENERALIZED PAIN, ADMINISTERED NORCO 10/325 1 TAB PER PATIENT REQUEST, WILL CONTINUE TO MONITOR.
[2018-07-10 16:00] VITALS: BP_SYST 121; BP_SYST 131; BP_DIAS 75; BP_DIAS 83
--- NOTE | 2018-07-10 16:02 | NUR ---
JOCY was contacted by pts nephew and next of kin Vin [phone] to discuss discharge date, JOCY informed pts nephew that she discussed with MD pts treatment plan and MD will increase pts medication. JOCY also informed pts nephew that DC has not been ordered.
--- NOTE | 2018-07-10 16:43 | NUR ---
GPS/RN PATIENT IS BEING INTRUSIVE AND VERBALLY ABUSIVE TOWARDS STAFF. SHOUTING PROFANITIES AND SAYING INAPPROPRIATE THINGS STATED TO OXYGEN TANK FILLER " GO BRUSH YOUR CUNT". STAFF IS ATTENDING TO ALL PATIENTS NEEDS HOWEVER, PATIENT IS BEING ACCUSATORY TOWARDS STAFF.
--- NOTE | 2018-07-10 19:25 | NUR ---
RN NOTES RECEIVED PATIENT WALKING IN HALLWAY WITH STEADY GAIT. PATIENT AO X 3, ABLE TO MAKE NEEDS KNOWN. NO ACUTE DISTRESS NOTED. PATIENT IS ASKING FOR NORCO. PATIENT INFORMED THAT NORCO IS NOT YET AVAILABLE, Q 6 HOURS. PATIENT ASKED FOR ATIVAN; INFORMED THAT ATIVAN IS NOT AVAILABLE. PATIENT WAS GIVEN EDUCATION ON LIST OF SCHEDULED MEDICATION. PATIENT WAS ENCOURAGED TO SIT IN DINING ROOM. IN PATIENT'S ROOM, BED IS LOW, WITH BILATERAL UPPER SIDE RAILS UP. CALL MARK WITHIN EASY REACH. WILL CONTINUE TO MONITOR PATIENT.
[2018-07-10] MEDS: diphenhydrAMINE HCL 25 MG CAPSULE PO PRN (19:45)
[2018-07-10 19:49] VITALS: BP 136/75
[2018-07-10 20:00] VITALS: BP 136/75
[2018-07-10] MEDS: clonazePAM 1 MG TABLET PO SCH (21:09)
[2018-07-10] MEDS: TRAZODONE 50 MG TABLET PO SCH (21:09)
[2018-07-10] MEDS: FLUVOXAMINE MALEATE 50 MG TABLET PO SCH (21:09)
[2018-07-10] MEDS: TEMAZEPAM 7.5 MG CAPSULE PO PRN (22:22)
[2018-07-11] MEDS: HYDROCODONE/APAP 10/325MG 1 EA TABLET PO PRN ×2 (00:20→08:27)
--- NOTE | 2018-07-11 06:18 | NUR ---
PATIENT AMBULATING IN HALLWAY. RESPIRATIONS EVEN. MONITORED FOR PAIN. PATIENT AT TIMES VERY RUDE TO STAFF; YELLING PROFANITIES. WHEN REDIRECTED AND REQUESTED TO BE RESPECTFUL, PATIENT WOULD DENY AGGRESSIVE BEHAVIOR. DUE MEDS GIVEN WITH NO ASE NOTED. NEEDS ATTENDED. SAFETY PRECAUTIONS AND COMFORT MEASURES IN PLACE. WILL GIVE REPORT TO DAY SHIFT FOR CONTINUITY OF CARE.
[2018-07-11 08:00] VITALS: BP 142/91
[2018-07-11] MEDS: PREGABALIN 25 MG CAPSULE PO SCH (08:27)
[2018-07-11] MEDS: LEVOTHYROXINE SODIUM 88 MCG TABLET PO SCH (08:27)
[2018-07-11] MEDS: clonazePAM 0.5 MG TABLET PO SCH ×2 (08:27→12:49)
[2018-07-11] MEDS: FLUVOXAMINE MALEATE 50 MG TABLET PO SCH ×3 (08:27→17:16)
[2018-07-11] MEDS: NICOTINE PATCH (21MG) 21 MG PATCH.TD24 TD SCH (08:28)
--- NOTE | 2018-07-11 08:30 | NUR ---
GPS/RN PATIENT REPORTS 8/10 GENERALIZED PAIN, ADMINISTERED NORCO 10/325 1 TAB PER PATIENT REQUEST, WILL CONTINUE TO MONITOR.
[2018-07-11] MEDS: VALPROIC ACID 250 MG/5 ML UDC PO SCH ×3 (09:48→17:15)
[2018-07-11] MEDS: QUETIAPINE FUMARATE 100 MG TABLET PO SCH ×2 (09:48→17:16)
[2018-07-11] MEDS: diphenhydrAMINE HCL 25 MG CAPSULE PO PRN (09:54)
--- NOTE | 2018-07-11 09:56 | NUR ---
GPS/RN PATIENT REQUESTING BENADRYL FOR SINUS SYMPTOMS, ADMINISTERED BENADRYL PO . WILL CONTINUE TO MONITOR.
[2018-07-11] MEDS: HYDROCORTISONE 0.5% CREAM 28.35 GM TUBE TP SCH ×2 (10:01→20:07)
[2018-07-11 16:00] VITALS: BP 148/87
[2018-07-11 20:23] VITALS: BP 119/54
[2018-07-11] MEDS: TRAZODONE 50 MG TABLET PO SCH (21:28)
[2018-07-11] MEDS: clonazePAM 1 MG TABLET PO SCH (22:09)
[2018-07-11 23:00] VITALS: BP 128/65
[2018-07-12] MEDS: diphenhydrAMINE HCL 25 MG CAPSULE PO PRN (05:51)
[2018-07-12] MEDS: HYDROCODONE/APAP 10/325MG 1 EA TABLET PO PRN (07:57)
[2018-07-12 08:00] VITALS: BP 137/84
[2018-07-12] MEDS: clonazePAM 0.5 MG TABLET PO SCH ×2 (08:58→12:12)
[2018-07-12] MEDS: QUETIAPINE FUMARATE 100 MG TABLET PO SCH (08:59)
[2018-07-12] MEDS: FLUVOXAMINE MALEATE 50 MG TABLET PO SCH ×2 (08:59→12:12)
[2018-07-12] MEDS: LEVOTHYROXINE SODIUM 88 MCG TABLET PO SCH (08:59)
[2018-07-12] MEDS: PREGABALIN 25 MG CAPSULE PO SCH (08:59)
[2018-07-12] MEDS: VALPROIC ACID 250 MG/5 ML UDC PO SCH ×2 (08:59→12:12)
[2018-07-12] MEDS: NICOTINE PATCH (21MG) 21 MG PATCH.TD24 TD SCH (09:00)
[2018-07-12] MEDS: HYDROCORTISONE 0.5% CREAM 28.35 GM TUBE TP SCH (09:00)
--- NOTE | 2018-07-12 12:13 | NUR ---
RN NOTE: HOLDING CLONAZEPAM. PATIENT GETTING DISCHARGED AT 1300
--- NOTE | 2018-07-12 14:00 | NUR ---
RN NOTE: DISCHARGE PATIENT LEFT THE UNIT AT 1350 WITH NEPHEW. PATIENT DENIES SI/HI DURING DISCHARGE. PATIENT SIGNED ALL DISCHARGE PAPERS, LEFT WITH BELONGINGS, AND SKIN ASSESSMENT ALLOWED. PSYCHIATRIST D/C HOLD, DISCHARGE ORDER, AND CONT MEDS. CUSTOMER SOLUTIONS COORDINATOR AWARE AND CONT MEDS.
--- NOTE | 2018-07-12 14:24 | NUR ---
DISCHARGE NOTE: Pt was discharged at 1350 [address] [place], [place] [address] [address] [facility] [phone] via private vehicle by nephpawan Banuelos [phone]. Pt was in a euphoric mood with congruent affect. Pt denied visual/auditory hallucinations and denied suicidal/homicidal ideations. Patient was provided referrals to address his alcohol use. Patient was referred to [facility]: [address] [place] [address] and will report for an Intake on July before 5:00pm. Additional resources included [facility] [address] [place] [address] and [facility] [address] [place] [address] . SW provided pt with a referral to [facility] Address: [address] [place] [phone] and encouraged pt to schedule a follow-up appointment with Materials Handling Coordinator: Dr. Gama Hunter [address] [facility] [address], [place] [address] . The multidisciplinary exitcare form was done, printed, signed, and given to the patient.
--- NOTE | 2018-07-13 12:09 | NUR ---
JOCY faxed Home Health referral to [facility] Address: [address] [place] [address] .
== END 2018-07-12 13:50 | disposition home or self-care (01) | DRG 885 ==
LOC: GPS 16:51
PROVIDERS: ADMIT Psychiatry & Neurology Psychiatry; ATTEND Nurse Practitioner Acute Care
PROC: 3E1B38Z Irrigation of Ear using Irrigating Substance, Percutaneous Approach (ICD-10-PCS; principal; 2018-07-11)
DX: F31.64 Bipolar disorder, current episode mixed, severe, with psychotic features (principal); R45.851 Suicidal ideations; F41.9 Anxiety disorder, unspecified; E03.9 Hypothyroidism, unspecified; G62.9 Polyneuropathy, unspecified; G89.29 Other chronic pain; H61.21 Impacted cerumen, right ear; F29 Unspecified psychosis not due to a substance or known physiological condition
CPT/HCPCS: 36415; 80053-TC; 80061-TC; 80164-TC; 81000-TC; 83735-TC; 84100-TC; 85025-TC; 87081-TC; J1200; J1630; J1631; J2060; J3490; Q0163

== ENCOUNTER 2018-10-01 12:05 | Inpatient (IN) | payer MEDICARE ==
[~2018-10-01] VITALS: Ht 182.9 cm; Wt 79.4 kg
[~2018-10-01 12:05] MED LIST changes: +CLON1TAB PO; +HYDR-4354 PO; -HYDR-548 PO; +LEVO88TA5 PO; +LITH150C PO; +PREG75CA PO; +QUET200T PO; +TRAZ-214 PO
[2018-10-01 12:56] LABS: BASOPHILS # (AUTO) 0.1 /CMM (0.0-0.2); BASOPHILS % (AUTO) 0.5 % (0.0-2.0); EOSINOPHILS % (AUTO) 0.6 % (0.0-6.0); HEMATOCRIT 38 % (39-51); HEMOGLOBIN 12.4 g/dL (13.5-17.5); LYMPHOCYTES # (AUTO) 2.1 /CMM (0.8-4.8); LYMPHOCYTES % (AUTO) 19.7 % (20.0-44.0); MEAN CORPUSCULAR HGB CONC 33 g/dl (31.0-36.0); MEAN CORPUSCULAR VOLUME 93 fL (80-96); MONOCYTES # (AUTO) 1.1 /CMM (0.1-1.30); MONOCYTES % (AUTO) 9.8 % (2.0-12.0); NEUTROPHILS # (AUTO) 7.4 /CMM (1.8-8.9); NEUTROPHILS % (AUTO) 69.4 % (43.0-81.0); PLATELET COUNT (AUTO) 228 /CMM (150-450); RED BLOOD CELL COUNT(AUTO) 4.06 MIL/uL (4.5-6.0); WHITE BLOOD COUNT (AUTO) 10.7 K/uL (4.3-11.0)
[2018-10-01 13:10] LABS: CALCIUM, SERUM 8.9 mg/dL (8.5-10.1); CARBON DIOXIDE 28 mmol/L (21-32); CHLORIDE 102 mmol/L (98-107); CREATININE 1.3 mg/dL (0.6-1.3); GLUCOSE 108 mg/dL (74-106); POTASSIUM 4.1 mmol/L (3.5-5.1); SODIUM SERUM 137 mmol/L (136-145); UREA NITROGEN, BLOOD 17 mg/dL (7-18)
[2018-10-01 13:16] LABS: ALANINE AMINOTRANSFERASE 33 U/L (12-78); ALBUMIN 3.1 g/dL (3.4-5.0); ALCOHOL, BLOOD < 3 mg/dL (0-0); ALKALINE PHOSPHATASE 41 U/L (46-116); ASPARTATE AMINOTRANSFERASE 28 U/L (15-37); BILIRUBIN,DIRECT 0.1 mg/dL (0.0-0.2); BILIRUBIN,TOTAL 0.6 mg/dL (0.2-1.0); TOTAL PROTEIN, SERUM 6.3 g/dL (6.4-8.2)
[2018-10-01 15:03] LABS: THYROID STIMULATING HORMONE 2.658 uIU/mL (0.358-3.74)
[2018-10-01 16:43] LABS: APPEARANCE,URINE CLEAR (CLEAR); BILIRUBIN,URINE NEGATIVE (NEGATIVE); BLOOD, URINE NEGATIVE Ery/uL (NEGATIVE); COLOR,URINE YELLOW (YELLOW); KETONES,URINE NEGATIVE (NEGATIVE); LEUKOCYTE ESTERASE ,URINE 1+ (NEGATIVE); NITRITE, URINE NEGATIVE (NEGATIVE); PH,URINE 7.5 (5.0-8.0); PROTEIN,URINE NEGATIVE (NEGATIVE); UGLUCOSE NEGATIVE (NEGATIVE); UROBILINOGEN,URINE 0.2 EU/dL (0.2)
[2018-10-01 17:39] LABS: BACTERIA,URINE 1+ /HPF (None Seen); RBC,URINE 0-2 /HPF (0-2); SQUAMOUS EPITHELIAL CELL,UR 0-2 /HPF (None Seen)
[2018-10-01] MEDS ORDERED: CEPHALEXIN MONOHYDRATE 500 MG CAPSULE PO ONE ×2 (18:30→18:41)
[2018-10-01 19:15] VITALS: BP 136/76
[2018-10-01] MEDS ORDERED: MAGNESIUM HYDROXIDE 30 ML UDC PO PRN (19:30)
[2018-10-01] MEDS ORDERED: MAG HYDROX/AL HYDROX/SIMETH 30 ML UDC PO PRN (19:30)
[2018-10-01 20:00] VITALS: BP 136/76
[2018-10-01] MEDS: TEMAZEPAM 7.5 MG CAPSULE PO PRN (22:07)
[2018-10-02] MEDS: LORAZEPAM 1 MG TABLET PO PRN ×3 (02:04→13:55)
[2018-10-02 07:51] LABS: CHOLESTEROL 178 mg/dL (<200); HDL CHOLESTEROL 89 mg/dL (40-60); LDL 70 mg/dL (0-99); TRIGLYCERIDES 89 mg/dL (30-150)
[2018-10-02] MEDS: ACETAMINOPHEN 325 MG TABLET PO PRN ×2 (07:53→08:00)
[2018-10-02] MEDS: LEVOTHYROXINE SODIUM 88 MCG TABLET PO SCH (07:53)
[2018-10-02 08:00] VITALS: BP 130/84
[2018-10-02 16:00] VITALS: BP 150/85
[2018-10-02] MEDS: HYDROCODONE/APAP 10/325MG 1 EA TABLET PO PRN (16:48)
[2018-10-02] MEDS ORDERED: clonazePAM 0.5 MG TABLET PO PRN (20:30)
[2018-10-02 20:33] VITALS: BP 164/64
[2018-10-02] MEDS: TRAZODONE 50 MG TABLET PO SCH (21:45)
[2018-10-02 22:00] VITALS: BP 135/80
[2018-10-02] MEDS: TEMAZEPAM 7.5 MG CAPSULE PO PRN (23:59)
[2018-10-03 08:00] VITALS: BP 142/71
[2018-10-03] MEDS: LEVOTHYROXINE SODIUM 88 MCG TABLET PO SCH (08:06)
[2018-10-03] MEDS: clonazePAM 0.5 MG TABLET PO SCH ×3 (08:06→21:05)
[2018-10-03] MEDS: FLUVOXAMINE MALEATE 50 MG TABLET PO SCH ×3 (08:07→18:02)
[2018-10-03] MEDS: QUETIAPINE FUMARATE 100 MG TABLET PO SCH ×2 (08:10→18:02)
[2018-10-03 16:00] VITALS: BP 148/82
[2018-10-03 20:15] VITALS: BP 113/68
[2018-10-03] MEDS: TRAZODONE 50 MG TABLET PO SCH (21:58)
[2018-10-04] MEDS: LORAZEPAM 1 MG TABLET PO PRN (03:37)
[2018-10-04 08:00] VITALS: BP 146/81
[2018-10-04] MEDS: clonazePAM 0.5 MG TABLET PO SCH ×3 (08:58→21:13)
[2018-10-04] MEDS: LEVOTHYROXINE SODIUM 88 MCG TABLET PO SCH (08:58)
[2018-10-04] MEDS: QUETIAPINE FUMARATE 100 MG TABLET PO SCH ×2 (08:58→17:34)
[2018-10-04] MEDS: FLUVOXAMINE MALEATE 50 MG TABLET PO SCH ×3 (08:58→17:34)
[2018-10-04 16:00] VITALS: BP 111/67
[2018-10-04 20:03] VITALS: BP 118/70
[2018-10-04] MEDS: TRAZODONE 50 MG TABLET PO SCH (21:13)
[2018-10-04] MEDS: CEPHALEXIN MONOHYDRATE 500 MG CAPSULE PO SCH (21:13)
[2018-10-05] MEDS: HYDROCODONE/APAP 10/325MG 1 EA TABLET PO PRN ×2 (01:19→10:38)
[2018-10-05 08:00] VITALS: BP 136/72
[2018-10-05] MEDS: clonazePAM 0.5 MG TABLET PO SCH ×3 (08:38→21:42)
[2018-10-05] MEDS: FLUVOXAMINE MALEATE 50 MG TABLET PO SCH ×3 (08:38→16:26)
[2018-10-05] MEDS: LEVOTHYROXINE SODIUM 88 MCG TABLET PO SCH (08:38)
[2018-10-05] MEDS: CEPHALEXIN MONOHYDRATE 500 MG CAPSULE PO SCH ×2 (08:38→21:42)
[2018-10-05] MEDS: QUETIAPINE FUMARATE 100 MG TABLET PO SCH ×2 (09:31→16:27)
[2018-10-05 16:00] VITALS: BP 142/86
[2018-10-05 20:00] VITALS: BP 133/79
[2018-10-05] MEDS: TRAZODONE 50 MG TABLET PO SCH (21:42)
[2018-10-05] MEDS: LITHIUM CARBONATE (300 MG CAP) 300 MG CAPSULE PO SCH (21:42)
[2018-10-05] MEDS: TEMAZEPAM 7.5 MG CAPSULE PO PRN (21:42)
[2018-10-06 08:00] VITALS: BP 151/68
[2018-10-06] MEDS: CEPHALEXIN MONOHYDRATE 500 MG CAPSULE PO SCH (08:04)
[2018-10-06] MEDS: LITHIUM CARBONATE (300 MG CAP) 300 MG CAPSULE PO SCH ×2 (08:04→21:21)
[2018-10-06] MEDS: LEVOTHYROXINE SODIUM 88 MCG TABLET PO SCH (08:05)
[2018-10-06] MEDS: FLUVOXAMINE MALEATE 50 MG TABLET PO SCH ×3 (08:05→16:23)
[2018-10-06] MEDS: clonazePAM 0.5 MG TABLET PO SCH ×3 (08:07→21:21)
[2018-10-06] MEDS: QUETIAPINE FUMARATE 100 MG TABLET PO SCH ×2 (09:08→16:23)
[2018-10-06 16:00] VITALS: BP 139/86
[2018-10-06] MEDS: HYDROCODONE/APAP 10/325MG 1 EA TABLET PO PRN (16:28)
[2018-10-06 20:40] VITALS: BP 124/76
[2018-10-06] MEDS: TRAZODONE 50 MG TABLET PO SCH (21:21)
[2018-10-06] MEDS: TEMAZEPAM 7.5 MG CAPSULE PO PRN (21:21)
[2018-10-07] MEDS: LEVOTHYROXINE SODIUM 88 MCG TABLET PO SCH (07:46)
[2018-10-07 08:00] VITALS: BP 136/88
[2018-10-07] MEDS: FLUVOXAMINE MALEATE 50 MG TABLET PO SCH ×3 (08:11→16:27)
[2018-10-07] MEDS: clonazePAM 0.5 MG TABLET PO SCH ×3 (08:11→21:18)
[2018-10-07] MEDS: LITHIUM CARBONATE (300 MG CAP) 300 MG CAPSULE PO SCH ×2 (08:11→21:18)
[2018-10-07] MEDS: QUETIAPINE FUMARATE 100 MG TABLET PO SCH ×2 (08:11→16:27)
[2018-10-07] MEDS: HYDROCODONE/APAP 10/325MG 1 EA TABLET PO PRN (11:24)
[2018-10-07 16:00] VITALS: BP 129/83
[2018-10-07 20:00] VITALS: BP 128/76
[2018-10-07] MEDS: TEMAZEPAM 7.5 MG CAPSULE PO PRN (21:19)
[2018-10-07] MEDS: TRAZODONE 50 MG TABLET PO SCH (21:19)
[2018-10-08 08:03] VITALS: BP 134/71
[2018-10-08] MEDS: LEVOTHYROXINE SODIUM 88 MCG TABLET PO SCH (08:29)
[2018-10-08] MEDS: HYDROCODONE/APAP 10/325MG 1 EA TABLET PO PRN (08:29)
[2018-10-08] MEDS: LITHIUM CARBONATE (300 MG CAP) 300 MG CAPSULE PO SCH ×2 (08:30→21:02)
[2018-10-08] MEDS: QUETIAPINE FUMARATE 100 MG TABLET PO SCH ×2 (08:30→16:05)
[2018-10-08] MEDS: FLUVOXAMINE MALEATE 50 MG TABLET PO SCH ×3 (08:30→16:05)
[2018-10-08] MEDS: clonazePAM 0.5 MG TABLET PO SCH ×3 (10:05→20:59)
[2018-10-08 16:25] VITALS: BP 107/63
[2018-10-08 20:00] VITALS: BP 130/80
[2018-10-08] MEDS: TRAZODONE 50 MG TABLET PO SCH (22:21)
[2018-10-08] MEDS: TEMAZEPAM 7.5 MG CAPSULE PO PRN (23:22)
[2018-10-09 08:00] VITALS: BP 114/76
[2018-10-09] MEDS: QUETIAPINE FUMARATE 100 MG TABLET PO SCH ×2 (08:40→18:06)
[2018-10-09] MEDS: clonazePAM 0.5 MG TABLET PO SCH ×3 (08:40→21:21)
[2018-10-09] MEDS: LEVOTHYROXINE SODIUM 88 MCG TABLET PO SCH (08:40)
[2018-10-09] MEDS: LITHIUM CARBONATE (300 MG CAP) 300 MG CAPSULE PO SCH ×2 (08:40→21:21)
[2018-10-09] MEDS: FLUVOXAMINE MALEATE 50 MG TABLET PO SCH ×3 (08:41→18:06)
[2018-10-09] MEDS: HYDROCODONE/APAP 10/325MG 1 EA TABLET PO PRN (13:45)
[2018-10-09 16:00] VITALS: BP 142/86
[2018-10-09 20:03] VITALS: BP 121/72
[2018-10-09] MEDS: TRAZODONE 50 MG TABLET PO SCH (21:21)
[2018-10-09] MEDS: HYDROCODONE/APAP 5/325MG 1 EACH TABLET PO PRN (23:11)
[2018-10-10 08:00] VITALS: BP 140/95
[2018-10-10 08:19] LABS: BASOPHILS % (AUTO) 0.4 % (0.0-2.0); EOSINOPHILS % (AUTO) 1.4 % (0.0-6.0); HEMATOCRIT 39 % (39-51); HEMOGLOBIN 13.1 g/dL (13.5-17.5); LYMPHOCYTES # (AUTO) 1.9 /CMM (0.8-4.8); MEAN CORPUSCULAR HGB CONC 33 g/dl (31.0-36.0); MEAN CORPUSCULAR VOLUME 91 fL (80-96); MONOCYTES # (AUTO) 0.7 /CMM (0.1-1.30); MONOCYTES % (AUTO) 8.3 % (2.0-12.0); NEUTROPHILS # (AUTO) 6.1 /CMM (1.8-8.9); NEUTROPHILS % (AUTO) 68.9 % (43.0-81.0); PLATELET COUNT (AUTO) 415 /CMM (150-450); RED BLOOD CELL COUNT(AUTO) 4.32 MIL/uL (4.5-6.0); WHITE BLOOD COUNT (AUTO) 8.8 K/uL (4.3-11.0)
[2018-10-10 08:30] LABS: CALCIUM, SERUM 9.8 mg/dL (8.5-10.1); CREATININE 1.1 mg/dL (0.6-1.3); POTASSIUM 4.1 mmol/L (3.5-5.1)
[2018-10-10] MEDS: clonazePAM 0.5 MG TABLET PO SCH ×3 (09:05→20:29)
[2018-10-10] MEDS: FLUVOXAMINE MALEATE 50 MG TABLET PO SCH ×3 (09:05→17:24)
[2018-10-10] MEDS: QUETIAPINE FUMARATE 100 MG TABLET PO SCH ×2 (09:05→17:27)
[2018-10-10] MEDS: LEVOTHYROXINE SODIUM 88 MCG TABLET PO SCH (09:05)
[2018-10-10] MEDS: LITHIUM CARBONATE (300 MG CAP) 300 MG CAPSULE PO SCH ×2 (09:05→21:14)
[2018-10-10] MEDS: HYDROCODONE/APAP 5/325MG 1 EACH TABLET PO PRN (10:36)
[2018-10-10 16:05] VITALS: BP 135/78
[2018-10-10 19:57] VITALS: BP 131/78
[2018-10-10] MEDS: TRAZODONE 50 MG TABLET PO SCH (21:14)
[2018-10-10] MEDS: TEMAZEPAM 7.5 MG CAPSULE PO PRN (23:38)
[2018-10-11 08:00] VITALS: BP 130/78
[2018-10-11] MEDS: LEVOTHYROXINE SODIUM 88 MCG TABLET PO SCH (08:47)
[2018-10-11] MEDS: LITHIUM CARBONATE (300 MG CAP) 300 MG CAPSULE PO SCH (08:48)
[2018-10-11] MEDS: QUETIAPINE FUMARATE 100 MG TABLET PO SCH (08:48)
[2018-10-11] MEDS: FLUVOXAMINE MALEATE 50 MG TABLET PO SCH (08:48)
[2018-10-11] MEDS: clonazePAM 0.5 MG TABLET PO SCH (08:48)
[2018-10-11] MEDS: HYDROCODONE/APAP 5/325MG 1 EACH TABLET PO PRN (10:46)
== END 2018-10-11 12:30 | DRG 885 ==
LOC: ER 12:07 → GPS 18:15
PROVIDERS: ADMIT Psychiatry & Neurology Psychiatry; ATTEND Psychiatry & Neurology Psychiatry
DX: F31.5 Bipolar disorder, current episode depressed, severe, with psychotic features (principal); E44.1 Mild protein-calorie malnutrition; N39.0 Urinary tract infection, site not specified; F41.9 Anxiety disorder, unspecified; E03.9 Hypothyroidism, unspecified; F03.90 Unspecified dementia, unspecified severity, without behavioral disturbance, psychotic disturbance, mood disturbance, and anxiety; Z73.6 Limitation of activities due to disability; G89.29 Other chronic pain; G62.9 Polyneuropathy, unspecified; M19.90 Unspecified osteoarthritis, unspecified site; E88.09 Other disorders of plasma-protein metabolism, not elsewhere classified; Z68.23 Body mass index [BMI] 23.0-23.9, adult; D63.8 Anemia in other chronic diseases classified elsewhere
CPT/HCPCS: 36415; 70450-TC; 80048-TC; 80061-TC; 80076-TC; 80305; 81000-TC; 84443-TC; 84484-TC; 85025-TC; 85730-TC; 87081-TC; 87086-TC; G0480